=== PATIENT | male | born 2000 | race Caucasian/White ===

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

== ENCOUNTER 2018-12-04 15:15 | Emergency (ER) | payer OTHER ==
[~2018-12-04] VITALS: Ht 180.3 cm; Wt 122.9 kg
[2018-12-04 15:19] VITALS: Ht 180.3 cm; Wt 122.9 kg
== END 2018-12-04 16:03 | disposition home or self-care (01) ==
LOC: ED 15:15
DX: R07.89 Other chest pain (principal); F12.90 Cannabis use, unspecified, uncomplicated; E66.01 Morbid (severe) obesity due to excess calories; Z68.37 Body mass index [BMI] 37.0-37.9, adult

== ENCOUNTER 2019-08-10 19:54 | Emergency (ER) | payer OTHER ==
[~2019-08-10] VITALS: Ht 177.8 cm; Wt 118.8 kg
[2019-08-10 20:02] VITALS: Ht 177.8 cm; Wt 118.8 kg
[2019-08-10 21:44] VITALS: BP 140/80
== END 2019-08-10 21:44 | disposition home or self-care (01) ==
LOC: ED 19:54
DX: S62.306A Unspecified fracture of fifth metacarpal bone, right hand, initial encounter for closed fracture (principal); W22.8XXA Striking against or struck by other objects, initial encounter; Y93.89 Activity, other specified; Y92.89 Other specified places as the place of occurrence of the external cause; Y99.8 Other external cause status
CPT/HCPCS: J2001